=== PATIENT | male | born 1970 | race Two or more races ===

== ENCOUNTER 2024-09-19 19:03 | Emergency (ER) | payer MEDICAID ==
[~2024-09-19] VITALS: Ht 167.6 cm; Wt 68.2 kg
[2024-09-19 20:21] VITALS: BP 129/94; PULSE 75; RESP 16; TEMP 98.1; O2SAT 96
== END 2024-09-19 20:42 | disposition home or self-care (01) ==
LOC: EMS 19:03
DX: R46.89 Other symptoms and signs involving appearance and behavior (principal); Z59.00 Homelessness unspecified
CPT/HCPCS: 99283; Z7502

== ENCOUNTER 2024-11-29 07:54 | Emergency (ER) | payer MEDICAID ==
[~2024-11-29] VITALS: Ht 167.6 cm; Wt 76.0 kg
[2024-11-29 08:12] VITALS: TEMP 98.1
[2024-11-29] MEDS: SODIUM CHLORIDE 0.9% 1,000 ML IV ONE (08:43)
[2024-11-29] MEDS: CIPROFLOXACIN HCL 250 MG TABLET PO ONE (08:43)
[2024-11-29] MEDS: LOPERAMIDE HCL 2 MG CAPSULE PO ONE (08:55)
[2024-11-29 08:57] LABS: PLATELET COUNT (AUTO) 201 K/uL (150-450); RED BLOOD CELL COUNT(AUTO) 4.65 MIL/uL (4.50-5.90); RED CELL DISTRIBUTION WIDTH 13.8 % (11.5-14.5); WHITE BLOOD COUNT (AUTO) 8.3 K/uL (4.5-11.0)
[2024-11-29 09:09] LABS: CALCIUM, TOTAL 8.8 mg/dL (8.8-10.5); CREATININE 0.74 mg/dL (0.60-1.30); GLOMERULAR FILTR. RATE CALC > 60 mL/min (>60); GLUCOSE,RANDOM 123 mg/dL (70-110); SODIUM SERUM 133 mmol/L (136-145); UREA NITROGEN, BLOOD 10 mg/dL (7-18)
[2024-11-29 11:25] VITALS: BP 138/88; PULSE 72; RESP 18; O2SAT 98
== END 2024-11-29 11:52 | disposition home or self-care (01) ==
LOC: EMS 07:54
DX: R19.7 Diarrhea, unspecified (principal); I10 Essential (primary) hypertension; Z59.00 Homelessness unspecified
CPT/HCPCS: 99283; 96360; 80048; 85025; 36415; J7030